=== PATIENT | male | born 1985 | race Asian ===

== ENCOUNTER 2016-09-27 10:47 | Emergency (ER) | payer MEDICAID ==
[~2016-09-27] VITALS: Ht 175.3 cm; Wt 152.0 kg
[2016-09-27 10:52] VITALS: BP 122/79; PULSE 63; RESP 14; O2SAT 100
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
[2016-09-27 11:46] VITALS: BP 122/79; PULSE 63; RESP 14; O2SAT 100
[2016-09-27] MEDS ORDERED: HYDR-4003 PO (17:20)
[2016-09-27] MEDS ORDERED: IBUP800T28 PO (17:20)
== END 2016-09-27 11:55 | disposition home or self-care (01) ==
LOC: SED 10:47
DX: S42.022D Displaced fracture of shaft of left clavicle, subsequent encounter for fracture with routine healing (principal); V18.0XXD Pedal cycle driver injured in noncollision transport accident in nontraffic accident, subsequent encounter; Y93.55 Activity, bike riding; Y92.9 Unspecified place or not applicable; Y99.8 Other external cause status

== ENCOUNTER 2016-09-28 07:48 | Day surgery (SDC) | payer MEDICAID ==
[2016-09-28] VITALS (9 sets, daily range): BP systolic 116–142; BP diastolic 64–88; PULSE 54–69; RESP 12–16; O2SAT 99–100
[~2016-09-28] VITALS: Ht 175.3 cm; Wt 70.5 kg
[~2016-09-28 07:48] MED LIST: HYDR-4003 PO; IBUP800T28 PO
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
[2016-09-28] MEDS ORDERED: Ondansetron 8 mg ODT Tablet PO ONE (08:40)
[2016-09-28] MEDS ORDERED: HYDROmorphone 1 mg/mL Inj IM ONE (08:40)
[2016-09-28] MEDS ORDERED: Ondansetron 2 mg/mL 2 mL Inj IVPUSH ONE (09:25)
[2016-09-28] MEDS ORDERED: HYDROmorphone 0.5 mg/0.5 mL iSecure Syringe IVPUSH PRN (09:25)
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
[2016-09-28] MEDS ORDERED: EPHEDrine/NS 5 mg/mL 5 mL Syringe ONE (10:43)
[2016-09-28] MEDS ORDERED: Dexamethasone 4 mg/mL Inj ONE (10:43)
[2016-09-28] MEDS ORDERED: Propofol 10,000 mCg/mL 20 mL Inj ONE (10:43)
[2016-09-28] MEDS ORDERED: MetoCLOpramide 5 mg/mL 2 mL Inj ONE (10:43)
[2016-09-28] MEDS ORDERED: Ondansetron 2 mg/mL 2 mL Inj ONE (10:43)
[2016-09-28] MEDS ORDERED: fentaNYL-PF 50 mCg/mL 2 mL Inj ONE (10:43)
[2016-09-28] MEDS ORDERED: Lactated Ringer's 1,000 ML IV ONE ×2 (11:14→12:07)
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
[2016-09-28] MEDS ORDERED: Lactated Ringer's 1,000 ML IV SCH (16:36)
[2016-09-28] MEDS ORDERED: Lactated Ringer's 500 ML IV PRN (16:36)
[2016-09-28] MEDS ORDERED: Ondansetron 2 mg/mL 2 mL Inj IVPUSH PRN (16:40)
[2016-09-28] MEDS ORDERED: Dexamethasone 4 mg/mL Inj IVPUSH PRN (16:40)
[2016-09-28] MEDS ORDERED: Phenylephrine 10,000 mCg/mL Inj IVPUSH PRN (16:40)
[2016-09-28] MEDS ORDERED: MetoCLOpramide 5 mg/mL 2 mL Inj IVPUSH PRN (16:40)
[2016-09-28] MEDS ORDERED: EPHEDrine Sulfate 50 mg/mL Inj IVPUSH PRN (16:40)
[2016-09-28] MEDS ORDERED: Ropivacaine-PF 0.5% 30 mL Inj INFILTRATE ONE (17:00)
[2016-09-28] MEDS ORDERED: Ketorolac 15 mg/mL Inj IVPUSH ONE (17:25)
[2016-09-28] MEDS ORDERED: HYDROcodone-APAP 5-325 mg Tablet PO PRN (17:25)
--- NOTE | 2016-09-28 17:25 | PCM.ORTHOP ---
Orthopedic Operative Report Date of Service: Sep 28, 2016 Pre Operative Diagnosis Left clavicle comminuted fracture Post Operative Diagnosis Same Procedure Left clavicle open reduction internal fixation Surgeon Surgeon: Jayesh Rivera MD Assistants: Luiz Feldman Indication for Procedure Left clavicle fracture Findings Per Dictation Details of Procedure Indications: Kash Dukes is a 31-year-old male who sustained a left comminuted clavicle fracture approximately several days ago after fall on outstretched hand. A clear explanation was given to the patient regarding the condition present, and the available conservative and surgical options. It was emphasized that the risks and benefits of surgery include but are not limited to infection, wound healing problems, damage to adjacent structures such as nerves, blood vessels and tendons, group home disability and pain, arthritis, hypersensitivity, deep vein thrombosis, pulmonary embolism, broken hardware, failure of surgery, need for further procedures at time of surgery or later, cast related problems, loss of limb or life. The patient was given an explanation and the patient voiced understanding of what to expect after the procedure or surgery, the limitations in activities of daily living, the likely duration for post operative recovery and the instructions that are to be followed. At the end the patient was invited to seek clarification or ask further questions but there were none. The patient voiced understanding of the entire consultation. Description of Procedure: Patient taken to operating room and transferred to operating table in supine position. Time out was performed with both anesthesia and orthopaedics present to confirm details of case to be performed. After time out performed, patient placed under general anesthesia and endotracheal tube secured into place. Once endotracheal tube secured, the patient was placed into the beach-chair position. Patient position was again checked to ensure all bony prominences adequately padded. The left arm, shoulder and clavicle was prepped and draped in the usual sterile fashion to the level of the tourniquet. An incision was made over the fracture site. Dissection was sharply performed down to bone. The bovie was used to clear soft tissue from the fracture site. Care was taken to avoid any neurovascular structures. The fracture was reduced under direct visualization. There were multiple comminuted pieces. The cortical chips were as attached to periosteum and was incorporated into the fracture site. The plate was then applied and secured to bone with solid screw purchase. The wound was thoroughly irrigated by bulb irrigation. Hemostasis was obtained with electrocautery. The wound was closed in layers. The wound was cleaned and dressed with Xeroform, gauze, and tape. Sling was placed. The patient was extubated without difficulty and transferred to the PACU in stable condition. 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 Without the qualified contact lens assistant being present, it would have extended the operative procedure and made the procedure technically more difficult to perform. Keep dressing clean dry and intact, do not remove dressing. Return to clinic in 10-14 days for follow-up with me for new steri-strips, obtain additional two- view x-rays of the affected clavicle. Continue sling for comfort and remove sling 3 times daily for elbow, wrist, hand ROM and shoulder pendulum exercises. Follow-up in 6 weeks postop with me with x-rays and may release to full activity once radiographically healing noted. Please keep the affected extremity elevated when possible. You may use ice and/or heat as needed for comfort. Grafts, Implants: Implants-See Implant Record Complications There were no periprocedural complications identified. Condition Stable Anesthetic Administered: GA Catheters: None Output, Estimated Blood Loss: 10 Blood Admin during surgery: No Surgical Cast or Splint: Other Surgical Specimen Removed: No Specimen sent to Pathology: No copies to: Jayesh Rivera MD, Christopher L MD Sep 28, 2016 17:25
--- NOTE | 2016-09-28 17:46 | PCM.ANEP1 ---
Post Anesthesia PACU Phase 1 Assessment Vital Signs Vital Signs Date Time Temp Pulse Resp B/P Pulse Ox O2 Delivery O2 Flow Rate FiO2 09/28/16 17:38 58 12 133/64 100 Simple Mask 6 09/28/16 17:32 36.2 65 15 136/69 100 Simple Mask 6 09/28/16 12:21 35.8 54 16 116/69 100 Room Air Anesthetic Administered: GA Level of Alertness: Awake, talking Pain: No Nausea or Vomiting: No CV Function & Hydration Stable: Yes Airway Device: Oxygen Delivery: Simple Mask Lungs: Clear to Auscultation PACU Phase 2 Assessment Complications: No Patient Instructions Provided: N/A Med Barreto MD Sep 28, 2016 17:46
[2016-09-28] MEDS: fentaNYL-PF 50 mCg/mL 2 mL Inj IVPUSH PRN ×2 (17:50→18:05)
[2016-09-28] MEDS: HYDROmorphone 1 mg/mL Inj IVPUSH PRN ×2 (17:50→18:05)
[2016-09-28] MEDS ORDERED: Lactated Ringer's 500 ML IV ONE (18:01)
== END 2016-09-28 23:59 | disposition home or self-care (01) ==
LOC: SED 07:48 → ORA 10:42 → SAS 10:49
PROVIDERS: ATTEND Orthopaedic Surgery
DX: S42.022A Displaced fracture of shaft of left clavicle, initial encounter for closed fracture (principal); F41.8 Other specified anxiety disorders; V19.3XXA Pedal cyclist (driver) (passenger) injured in unspecified nontraffic accident, initial encounter; Y93.89 Activity, other specified; Y92.9 Unspecified place or not applicable; Y99.8 Other external cause status
CPT/HCPCS: 23515; 76001; 96372; 99285; C1713; J0690; J1100; J1170; J1885; J2250; J2405; J2765; J2795; J3010; J7120